=== PATIENT | female | born 1955 | race African-American/Black ===

== ENCOUNTER 2024-04-07 09:17 | Emergency (ER) | payer MEDICARE, SELFPAY ==
--- NOTE | ~2024-04-07 | XR_ITS ---
EXAMINATION: XR chest 2V DATE: 04/07/2024 10:43 INDICATION: Cough with mucus production TECHNIQUE: PA and lateral views of the chest were obtained. COMPARISON: None FINDINGS: The lungs are clear with no focal airspace opacities, pulmonary edema, pleural effusion or pneumothor ax. The cardiomediastinal silhouette is normal. Median sternotomy wires and mediastinal surgical clip s are seen, likely from prior coronary artery bypass grafting. IMPRESSION: 1. No acute cardiopulmonary disease. Reviewed, dictated and finalized at location A. [employer] SOFTWARE ENG[employer]ER
[2024-04-07 09:36] VITALS: BP 114/68; PULSE 104; RESP 20; TEMP 36.6; O2SAT 98
--- NOTE | 2024-04-07 10:22 | ED_ITS ---
HPI - URI/Sore Throat General Chief Complaint: Upper Respiratory Infection Stated Complaint: SORE THROAT/COUGH/CONGESTION Time Seen by Provider: 04/07/24 10:22 Source: patient, RN notes reviewed and old records reviewed Mode of arrival: ambulatory Limitations: no limitations History of Present Illness HPI Narrative: 69-year-old female who presents to [facility] with complaints of 1 week duration of p ost nasal drainage, cough with production of yellow mucous, sore throat, and some headache discomfort. Patient reports open heart surgery in [facility] in January where she lives. She is presently here visiting family for holiday. Patient reports that her granddaughter has been ill. Patient has not taken any Tylenol for 2 days, states that she has been using Mucinex lozenges. MD elicited complaint: rhinorrhea, nasal congestion and other ( headache) Pertinent past history: other (Cabbage 2 months ago) Onset (ago): day(s) (5) Pain scale (0-10): 4 Description of mucous: yellow Able to tolerate fluids by mouth: Yes Treatments prior to arrival: other (Mucinex throat lozenges, Tylenol) Related Data Home Medications ?Medication ?Instructions ?Recorded ?Confirmed ?Last Taken ?Type amitriptyline 25 mg tablet mg 04/07/24 Unknown History aspirin 81 mg capsule 81 mg PO DAILY 04/07/24 04/07/24 Unknown History carvedilol 3.125 mg tablet mg 04/07/24 Unknown History empagliflozin 12.5 mg-metformin ER PO 04/07/24 Unknown History 1,000 mg tablet,extended rel 24 hr (Synjardy XR) pantoprazole 40 mg tablet,delayed mg PO 04/07/24 Unknown History release rosuvastatin 5 mg tablet mg 04/07/24 Unknown History Allergies Allergy/AdvReac Type Severity Reaction Status Date / Time oxycodone Allergy vomiting Verified 04/07/24 09:38 Review of Systems Review of Systems: CONSTITUTIONAL:Reports malaise, no chills, sweats, or fever. EYES: Denies visual changes, redness, or discharge. ENT: Reports rhinorrhea, congestion, sinus pain, no otalgia and positive for sore throat. CARDIOVASCULAR: Denies chest pain, palpitations, or edema. RESPIRATORY: Reports productive cough ? Denies dyspnea. GASTROINTESTINAL: Denies abdominal pain, nausea, vomiting, diarrhea SKIN: Denies rash or itching. MUSCULOSKELETAL: Denies myalgia. NEUROLOGIC: Reports headache. All systems reviewed & are unremarkable except as noted in HPI and below PMFSH Past Medical History Medical History (Updated 04/10/24 @ 16:51 by Lily Echevarria NP) GERD (gastroesophageal reflux disease) Hyperlipidemia Hypertension Diabetes Surgical History Surgical History (Updated 04/10/24 @ 16:47 by Lily Echevarria NP) History of open heart surgery 3 vessel cabbage January 2024 Social History Social History (Updated 04/10/24 @ 16:48 by Lily Echevarria NP) Smoking status: Never smoker Alcohol intake: current Alcohol use details: rare social Substance use type: does not use Gender identity (if verbalized by the patient): Female Comments At time of signature, agree with nursing past medical, surgical, social and family history. There is no relevant family history pertinent to the presenting complaint Exam Narrative: GENERAL: Well-appearing, well-nourished, and in no acute distress. HEAD: Normocephalic EYES: PERRLA, conjunctivae clear ENT: Nares clear, turbinates edematous and erythematous, clear discharge. Mucous membranes moist. TM pearly mclaughlin with dull light reflex bilaterally; no tragal tenderness. Oropharynx erythematous without lesions. Tonsils not enlarged and without exudate, no drooling, no hoarseness, no trismus, uvula midline.PND NECK: Supple. No lymphadenopathy CHEST: Clear to auscultation, breath sounds equal. No wheezing, rhonchi, rales, or stridor. No respiratory distress, speaks in full sentences productive cough reported, SAO2 98% on room air. HEART: Regular rate and rhythm. No murmur heard. SKIN: Warm, dry, no rash. NEURO: Alert and oriented x3. PSYCH: Normal mood and affect Course Course Emergency Course: Patient is aware of diagnosis, understands and agrees to treatment plan.? Anticipatory guidance given.? Patient agrees to follow-up as directed and is aware of reasons to seek care at the emergency department. Portions of this record may have been created with voice recognition software Level of Care: Express Care Visit Vital Signs Vital signs: Vital Signs Temperature 36.6 C 04/07/24 09:36 Pulse Rate 104 H 04/07/24 09:36 Respiratory Rate 20 04/07/24 09:36 Blood Pressure 114/68 04/07/24 09:36 Pulse Oximetry 98 04/07/24 09:36 Oxygen Delivery Room Air 04/07/24 09:36 Temperature 36.6 C 04/07/24 09:36 Pulse Rate 104 H 04/07/24 09:36 Respiratory Rate 20 04/07/24 09:36 Blood Pressure 114/68 04/07/24 09:36 Pulse Oximetry 98 04/07/24 09:36 Oxygen Delivery Room Air 04/07/24 09:36 Reviewed MDM - URI/Sore Throat MDM Narrative Medical decision making narrative: Differential diagnosis considered: Wheeler virus, strep pharyngitis, allergic rhinitis, upper respiratory tract infection, sinusitis, rhinosinusitis, nasopharyngitis. viral pharyngitis, otitis media, otitis externa, pneumonia, bronchitis, viral cough syndrome, viral syndrome, and influenza.? Exam findings show no acute concerns or changes; patient is non-toxic appearing and is in no distress.? Patient is appropriate for outpatient treatment and follow-up. Differential Diagnosis Differential diagnosis: Likely upper respiratory infection, sinusitis, viral infection and pharyngitis Medical Records Attestation: I reviewed the patient's medical records. Lab Data Attestation: I reviewed the patient's lab results. Lab results narrative: strep screen negative, culture sent Labs: Lab Results 04/07/24 Range/Units 10:44 POC Grp A Strep Screen Negative (Negative) Imaging Data Attestation: I personally reviewed and interpreted this imaging study as follows: My impression: no acute cardiopulmonary disease Radiologist's impression: [facility] [address] [place] [address] XRay Report Signed Patient: Sarah Latif : 1955 MR#: [id number] Age: 69 Acct:[id number] Loc: [id number] ADM Date: 04/07/24Attending Dr: Ordering Physician: Lily Echevarria APRN Date of Service: 04/07/24 Procedure(s): XR chest 2V Accession Number(s): [id number] cc: Juan,Renee; Lily Echevarria APRN~ EXAMINATION: XR chest 2V DATE: 04/07/2024 10:43 INDICATION: Cough with mucus production TECHNIQUE: PA and lateral views of the chest were obtained. COMPARISON: None FINDINGS: The lungs are clear with no focal airspace opacities, pulmonary edema, pleural effusion or pneumothorax. The cardiomediastinal silhouette is normal. Median sternotomy wires and mediastinal surgical clips are seen, likely from prior coronary artery bypass grafting. IMPRESSION: 1. No acute cardiopulmonary disease. Reviewed, dictated and finalized at location A. G [employer]ATER Please be advised this is a medical document. It is intended for [id number] communication. It is written in medical language and may contain unfamiliar abbreviations or verbiage. Medical documents are intended to carry relevant information, facts as evident, and the clinical opinion of the practitioner at the time of the encounter. This report may have been done utilizing a voice recognition system. Attempts have been made to correct errors. However, there may be uncorrected grammatical, spelling, and recognition errors present. The file time of this note does not necessarily represent the time the patient was seen. Dictated By: Vasquez Harkins MD 04/07/24 1108 Signed By: <Electronically signed by Vasquez Harkins MD in OV> Critical Care Time Critical Care Time Critical Care Time: No Discharge Plan Discharge Clinical Impression: Upper respiratory infection Qualifiers: URI type: unspecified URI Qualified Code(s): J06.9 - Acute upper respiratory infection, unspecified Pharyngitis Qualifiers: Pharyngitis/tonsillitis etiology: unspecified etiology Qualified Code(s): J02.9 - Acute pharyngitis, unspecified Patient Disposition: Home, Self-Care Condition: Stable Instructions: Antibiotic Form, Pharyngitis (ED), Upper Respiratory Infection (ED) Additional Instructions: Increase fluids especially juices and water Days-two-tzfgzll cough and cold medicine of your choice for your symptoms Zyrtec Claritin or Nicole include Coricidin brand decongestant heat to the face 20-30 minutes 4-6 times a day for pain Salt water gargles, throat lozenges or throat sprays as desired Antibiotic as directed--finished the medication monitor for any fevers If your symptoms persist, change or worsen significantly before you can contact your personal physician then please, without delay, go to the emergency department for further evaluation. Follow-up with PCP in 7-10 days or sooner if needed strep screen negative Patient Language: Nepali Prescriptions: New amoxicillin 875 mg tablet 875 mg PO Q12H Qty: 20 0RF No Action carvedilol 3.125 mg tablet amitriptyline 25 mg tablet pantoprazole 40 mg tablet,delayed release (DR/EC) PO rosuvastatin 5 mg tablet Synjardy XR 12.5-1,000 mg tablet, IR - ER, biphasic 24hr PO aspirin 81 mg capsule 81 mg PO DAILY Follow-up/Referrals: Juan,Renee [Other] Time of Disposition: 11:25 Quality Sarmad Coma Scale Eyes: Open Verbal: Oriented and Alert Motor: Follows Commands [place] Coma Total Score: 15
[2024-04-07 10:46] LABS: EDSTREPNEGPOS1 Negative (Negative)
== END 2024-04-07 11:39 | disposition home or self-care (01) ==
PROVIDERS: Emergency Provider Registered Nurse
DX: J06.9 Acute upper respiratory infection, unspecified (principal); J02.9 Acute pharyngitis, unspecified; K21.9 Gastro-esophageal reflux disease without esophagitis; E78.5 Hyperlipidemia, unspecified; I10 Essential (primary) hypertension; E11.9 Type 2 diabetes mellitus without complications; Z79.82 Long term (current) use of aspirin
CPT/HCPCS: 71046; 87081; 87880; 99203; G0463